=== PATIENT | female | born 1950 | race Caucasian/White ===

== ENCOUNTER 2021-06-30 14:55 | Emergency (ER) | payer BC, OTHER ==
[2021-06-30 15:05] VITALS: TEMP 97.7; BMI 39.3
[2021-06-30] MEDS ORDERED: metoPROLOL SUCCINATE 25 MG TAB.SR.24H (FP) PO ONE (16:34)
[2021-06-30] MEDS ORDERED: metoPROLOL SUCCINATE 25 MG TAB.SR.24H (FP) ONE ×2 (16:40→16:41)
[2021-06-30] MEDS ORDERED: hydrALAZINE HCL 25 MG TABLET (FP) PO ONE (18:02)
[2021-06-30] MEDS ORDERED: hydrALAZINE HCL 25 MG TABLET (FP) ONE (18:26)
[2021-06-30 18:50] VITALS: BP 190/76; PULSE 65
[2021-06-30 18:57] LABS: CHLORIDE 102 mmol/L (98-107); SODIUM 140 mmol/L (136-145)
[2021-06-30 18:58] LABS: CALCIUM 8.9 mg/dL (8.5-10.1)
[2021-06-30 18:59] LABS: ANION GAP 10 MMOL/L (8-16); BLOOD UREA NITROGEN 28.8 mg/dL (7-18); CO2 28 mmol/L (21-32); GLUCOSE,RANDOM 115 mg/dL (74-106)
[2021-06-30 19:02] LABS: CREATININE 1.2 mg/dL (0.55-1.3)
== END 2021-06-30 19:34 | disposition home or self-care (01) ==
LOC: JER 14:55
DX: I10 Essential (primary) hypertension (principal); V49.40XA Driver injured in collision with unspecified motor vehicles in traffic accident, initial encounter
CPT/HCPCS: 36415; 80048; 84484; 93005; 93010; 99284-25